=== PATIENT | female | born 1955 | race Caucasian/White ===

== ENCOUNTER 2016-09-21 13:24 | Emergency (ER) | payer OTHER ==
[~2016-09-21] VITALS: Ht 162.6 cm; Wt 62.6 kg
[~2016-09-21 13:24] MED LIST: BENADRYL25 MG PO; CLEOCIN HCL300 M1 PO; HYDROXYZINE HCL25 M2 PO; PREDNISONE10 M2 PO; VITAMIN C500 M6 PO
--- NOTE | 2016-09-21 14:10 | RADIOLOGY REPORT ---
EXAMINATION: XR CHEST CLINICAL INFORMATION: Evaluate for pneumonia. COMPARISON: Chest CT from 04/05/2013. Radiograph from 03/29/2013. TECHNIQUE: PA and lateral views of the chest were obtained. FINDINGS: The lungs are well expanded. There is no focal consolidation, edema, or effusion. No pneumothorax. The cardiomediastinal silhouette is within normal limits. No acute osseous abnormality. IMPRESSION: No acute pulmonary findings.
--- NOTE | 2016-09-21 15:39 | ED CARDIAC/CP/PALPITATIONS ---
History of Present Illness General Chief Complaint: Chest Pain Stated Complaint: URI? CHEST PAIN SINCE 08-30 Source: patient Exam Limitations: no limitations Vital Signs & Intake/Output Vital Signs & Intake/Output Vital Signs Date Time Temp Pulse Resp B/P Pulse O2 O2 Flow FiO2 Ox Delivery Rate 09/21 1632 98 09/21 1336 99.7 89 20 108/72 98 Room Air Allergies Coded Allergies: cefprozil (Intermediate, RASH 03/13/16) ciprofloxacin (From Cipro) (Intermediate, RASH 03/13/16) diphenhydramine (From Benadryl) (Intermediate, PINK DYE CAUSES RASH 03/13/16) erythromycin base (Intermediate, RASH 03/13/16) tetracycline (Intermediate, RASH 03/13/16) sulfamethoxazole (From Bactrim) (Intermediate, GI UPSET 03/13/16) trimethoprim (From Bactrim) (Intermediate, GI UPSET 03/13/16) Uncoded Allergies: ANESTHESIA ("I CODE' 'LUNGS COLLAPSE' 03/13/16) Reconcile Medications Ascorbate Calcium (Vitamin C) (Unknown Strength) TABLET (Unknown Dose) PO DAILY SUPPLEMENT (Reported) Azithromycin (Zithromax) 250 MG TABLET 1 DP PO AD BRONCHITIS 2 the first day followed by 1 for days 2-5 Clindamycin HCl (Cleocin HCl) 300 MG CAPSULE 1 CAP PO TID dermatitis Diphenhydramine HCl (Benadryl) 25 MG CAPSULE 2 CAP PO PRN CONTACT DERMATITIS (Reported) Hydroxyzine HCl 25 MG TABLET 1 TAB PO BID itchy rash Methylprednisolone. (Medrol) 4 MG TAB.DS.PK 1 DP PO AD INFLAMMATION 6 on day 1 then reduce by one tablet daily until gone Prednisone 10 MG TABLET 1 TAB PO AD STEROID (Reported) Triage Note: PT C/O SWOLLEN GLANDS WITH PRODUCTIVE COUGH, PAIN IN LEFT RIBS WITH PALPATION, PAIN IN LEFT SHOULDER. PT STATES PAIN IS IN UPPER LEFT CHEST INTO THE SHOULDER Triage Nurses Notes Reviewed? yes Onset: Gradual Duration: week(s): (1) Timing: recent history Quality/Severity: moderate Radiation: no radiation Activities at Onset: none Associated Symptoms: COUGH, DYSPNEA HPI: This is a 60 year old female who presents with congestion, left sided chest pain , left arm pain and swollen glands for the past few weeks. Positive productive cough, clear now blood tinged (once). Had high fever at the end of august 30 103.2 fevers from [place]. She states that she felt better for 10 days but then feels sick again. Past History Travel History Traveled to [place] past 21 day No Medical History Any Pertinent Medical History? see below for history Respiratory: asthma ON [employer]IAN/Reproductive: fibroid Surgical History Surgical History: non-contributory Psychosocial History Who do you live with Patient/Self What is your primary language Albanian Tobacco Use: Never used ETOH Use: denies use Illicit Drug Use: denies illicit drug use Family History Hx Contributory? No Review of Systems Review of Systems Constitutional: Reports: chills, fever (SUBJECTIVE). EENTM: Reports: no symptoms. Respiratory: Reports: cough, short of breath, sputum production. Cardiovascular: Reports: chest pain. GI: Denies: abdominal pain, nausea, vomiting. Genitourinary: Reports: no symptoms. Musculoskeletal: Reports: no symptoms. Skin: Reports: no symptoms. Neurological/Psychological: Denies: anxiety. Hematologic/Endocrine: Reports: bleeding (SCANT BLOOD TINGED SPUTUM). Denies: bruising. Immunologic/Allergic: Reports: lymphadenopathy. All Other Systems: Reviewed and Negative Physical Exam Physical Exam General Appearance: well developed/nourished, alert, awake, anxious Head: atraumatic, normal appearance Eyes: Bilateral: normal appearance, PERRL, EOMI. Ears, Nose, Throat: normal pharynx, normal ENT inspection, hearing grossly normal Neck: normal inspection, supple, full range of motion Respiratory: decreased breath sounds, wheezing Cardiovascular: regular rate/rhythm Peripheral Pulses: 2+ radial (R), 2+ radial (L) Gastrointestinal: normal bowel sounds, soft, non-tender Back: normal inspection, normal range of motion Extremities: normal inspection, normal capillary refill, normal range of motion, no edema Neurologic/Psych: no motor/sensory deficits, awake, alert, oriented x 3, normal gait Skin: intact, normal color, warm/dry Core Measures ACS in differential dx? No Severe Sepsis Present: No Septic Shock Present: No Progress Differential Diagnosis: AMI, myocarditis, pericarditis, pneumonia, pneumothorax, pulmonary embolism, BRONCHITIS Plan of Care: Orders Procedure Date/time Status RT ED ORDERS 09/21 1623 Active TROPONIN LEVEL 09/21 1540 Complete PARTIAL THROMBOPLASTIN TIME 09/21 1540 Complete PROTHROMBIN TIME 09/21 1540 Complete D-DIMER 09/21 1540 Complete COMPREHENSIVE METABOLIC PANEL 09/21 1540 Complete CBC WITHOUT DIFFERENTIAL 09/21 1540 Complete EKG 09/21 1326 Active Laboratory Tests 09/21/16 1600: Anion Gap 10, Estimated GFR > 60, BUN/Creatinine Ratio 25.0, Glucose 113 H, Calcium 9.4, Total Bilirubin 0.6, AST 34, ALT 53 H, Alkaline Phosphatase 75, Troponin I < 0.01, Total Protein 7.5, Albumin 4.3, Globulin 3.2, Albumin/ Globulin Ratio 1.3, PT 10.9, INR 1.04, APTT 28, D-Dimer < 200, CBC w Diff NO MAN DIFF REQ, RBC 3.99 L, MCV 91.3, MCH 31.5 H, RDW 13.3, MPV 8.4, Gran % 48.9, Lymphocytes % 38.1, Monocytes % 11.0 H, Eosinophils % 1.7, Basophils % 0.3, Absolute Granulocytes 3.1, Absolute Lymphocytes 2.4, Absolute Monocytes 0.7 H, Absolute Eosinophils 0.1, Absolute Basophils 0, PUBS MCHC 34.5 ekg, cxr, labs ordered. d-dimer ordered. xray negative. duoneb given. She reports relief after duoneb. (EMY ROWAN,CARI) Diagnostic Imaging: Viewed by Me: Radiology Read. Discussed w/RAD: Radiology Read. CXR Impression: PATIENT: SURYA MOORE PRESENT AGE: 60 PATIENT ACCOUNT NO: [id number] : 59 LOCATION: [facility] ORDERING PHYSICIAN: KAMERON HORAN DO (TBS) SERVICE DATE: 09/21/16 EXAM TYPE: RAD - XRY- CHEST XRAY, PA AND LATERAL EXAMINATION: XR CHEST CLINICAL INFORMATION: Evaluate for pneumonia. COMPARISON: Chest CT from 04/05/2013. Radiograph from 03/29/2013. TECHNIQUE: PA and lateral views of the chest were obtained. FINDINGS: The lungs are well expanded. There is no focal consolidation, edema, or effusion. No pneumothorax. The cardiomediastinal silhouette is within normal limits. No acute osseous abnormality. IMPRESSION: No acute pulmonary findings. DICTATED BY: ROSS ROWAN,LEIGH DATE/TIME DICTATED:09/21/161404 SPARES SCHEDULER: MICHAEL DATE/TIME TRANSCRIBED:01/19/17 / 1405 CONFIDENTIAL, DO NOT COPY WITHOUT APPROPRIATE AUTHORIZATION. <Electronically signed in Other Vendor System> SIGNED BY: ROSS RWOAN,LEIGH 09/21/16 1410 Initial ED EKG: NSR Rhythm Strip: normal sinus rhythm Departure Departure Time of Disposition: 1725 Disposition: HOME OR SELF CARE Condition: Stable Clinical Impression Primary Impression: Bronchitis Referrals: SUZY SCHNEIDER MD (PCP/Family) Additional Instructions: Take the azithromycin and medrol dose pack as directed. Follow up with your doctor in the office. Return for any changing or worsening symptoms. Departure Forms: Customer Survey General Discharge Information Prescriptions: Current Visit Scripts Methylprednisolone. (Medrol) 1 DP PO AD #1 DP 6 on day 1 then reduce by one tablet daily until gone Azithromycin (Zithromax) 1 DP PO AD #6 TAB 2 the first day followed by 1 for days 2-5 Critical Care Note Critical Care Note Critical Care Time: non-applicable
[2016-09-21 16:14] LABS: ABSOLUTE BASOPHIL COUNT 0 /CUMM (0.0-0.2); ABSOLUTE EOSINOPHIL COUNT 0.1 /CUMM (0.0-0.7); ABSOLUTE GRANULOCYTE CT 3.1 /CUMM (1.4-6.5); ABSOLUTE LYMPH COUNT 2.4 /CUMM (1.2-3.4); ABSOLUTE MONOCYTE COUNT 0.7 /CUMM (0.10-0.60); BASOPHIL % 0.3 % (0.0-2.0); EOSINOPHIL % 1.7 % (0-5); GRANULOCYTE % 48.9 % (42.2-75.2); HEMATOCRIT 36.4 % (37-47); MEAN CORPUSCULAR HGB 31.5 PG (27.0-31.0); MEAN CORPUSCULAR HGB CONC 34.5 G/DL (33.0-37.0); MEAN CORPUSCULAR VOLUME 91.3 FL (81.0-99.0); MEAN PLATELET VOLUME 8.4 FL (7.4-10.4); PLATELET COUNT 267 /CUMM (130-400); RBC DISTRIBUTION WIDTH 13.3 % (11.5-14.5); RED BLOOD CELL CT 3.99 /CUMM (4.20-5.40); WHITE BLOOD CELL COUNT 6.3 /CUMM (4.8-10.8)
[2016-09-21 16:21] LABS: PT 10.9 SEC (9.4-12.5); PTT 28 SEC (25-37)
[2016-09-21] MEDS ORDERED: ZITHROMAX250 M2 PO (17:27)
[2016-09-21] MEDS ORDERED: MEDROL4 M2 PO (17:27)
[2016-09-21 17:42] VITALS: BP 110/66
== END 2016-09-21 17:43 ==
LOC: ERH 13:24
PROVIDERS: Emergency Medicine
DX: R07.9 Chest pain, unspecified (principal); J40 Bronchitis, not specified as acute or chronic
CPT/HCPCS: 1263; 93005; 93010